=== PATIENT | female | born 1970 | race Two or more races ===

== ENCOUNTER 2019-05-20 15:52 | Emergency (ER) | payer OTHER ==
[~2019-05-20] VITALS: Ht 152.4 cm; Wt 65.9 kg
[2019-05-20] MEDS ORDERED: DIPH-423 PO (16:59)
[2019-05-20] MEDS ORDERED: PRED20TA PO (16:59)
[2019-05-20] MEDS ORDERED: triamcinolone acetonide 40mg/ml inj IM ONE (17:00)
[2019-05-20 17:17] VITALS: BP 150/77
== END 2019-05-20 17:19 | disposition home or self-care (01) ==
LOC: ER 15:52
DX: T78.49XA Other allergy, initial encounter (principal); X58.XXXA Exposure to other specified factors, initial encounter
CPT/HCPCS: 96372; 99283; J3301

== ENCOUNTER 2021-08-15 13:43 | Emergency (ER) | payer OTHER ==
[~2021-08-15] VITALS: Ht 152.4 cm; Wt 65.0 kg
[~2021-08-15 13:43] MED LIST: DIPH-423 PO
[2021-08-15 13:51] VITALS: BP 152/86
[2021-08-15] MEDS ORDERED: CYCL-1 PO (16:42)
== END 2021-08-15 16:56 | disposition home or self-care (01) ==
LOC: ER 13:44
DX: S16.1XXA Strain of muscle, fascia and tendon at neck level, initial encounter (principal); M62.830 Muscle spasm of back; H53.8 Other visual disturbances; M54.2 Cervicalgia; R42 Dizziness and giddiness; R11.0 Nausea; Z87.440 Personal history of urinary (tract) infections; Z79.899 Other long term (current) drug therapy; X58.XXXA Exposure to other specified factors, initial encounter; Y93.89 Activity, other specified; Y92.89 Other specified places as the place of occurrence of the external cause; Y99.8 Other external cause status
CPT/HCPCS: 72040; 82948; 93005; 99283

== ENCOUNTER 2022-10-05 02:03 | Emergency (ER) | payer OTHER ==
[~2022-10-05] VITALS: Ht 152.4 cm; Wt 63.6 kg
[~2022-10-05 02:03] MED LIST changes: +CYCL-1 PO
[2022-10-05 02:15] VITALS: BP 146/77
[2022-10-05 02:39] LABS: URINE HCG NEGATIVE (NEG)
[2022-10-05] MEDS ORDERED: HYDROcodone/acetaminophen 5mg/325mg tablet PO STA (02:39)
[2022-10-05] MEDS ORDERED: phenazopyridine 100mg tablet PO STA (02:39)
[2022-10-05 02:40] LABS: CLARITY,URINE SLIGHTLY CLOUDY (Clear); GLUCOSE, URINE NEGATIVE (Neg); KETONES,URINE NEGATIVE (Neg); LEUKOCYTE ESTERASE ,URINE SMALL (Neg); NITRITES, URINE NEGATIVE (Neg); OCCULT BLOOD,URINE LARGE (Neg); PH,URINE 6.5 (4.8-8.0); PROTEIN,URINE NEGATIVE (Neg); UROBILINOGEN,URINE 0.2 E.U/dL (0.2-1.0)
[2022-10-05 02:41] LABS: UA COLLECTION TYPE CLN CATCH MIDSTREAM
[2022-10-05 02:42] LABS: COLOR,URINE PINK (Yellow)
[2022-10-05] MEDS ORDERED: ondansetron 4mg rapidly disintigrating tab PO ONE (02:45)
[2022-10-05] MEDS ORDERED: ketorolac trometh. 30mg/ml inj. IM ONE (02:45)
[2022-10-05] MEDS ORDERED: normal saline 1000ml 1,000 ML IV ONE (02:55)
[2022-10-05 02:58] LABS: BACTERIA,URINE FEW /HPF (Neg); MUCUS STRANDS FEW /LPF (Neg); RBC,URINE 20-50 /HPF (0-2); SQUAMOUS EPITHELIAL CELL,UR FEW /LPF (FEW); TRANSITIONAL EPI CELLS,URINE FEW /HPF
[2022-10-05 03:40] LABS: BASOPHILS # (AUTO) 0.1 X10'3 (0-0.2); BASOPHILS % (AUTO) 0.9 % (0-1); EOSINOPHILS # (AUTO) 0.1 X10'3 (0-0.9); EOSINOPHILS % (AUTO) 1.3 % (0-6); HEMATOCRIT 38.1 % (35.0-45.0); HEMOGLOBIN 12.7 g/dl (12.0-16.0); LYMPHOCYTES # (AUTO) 2.1 X10'3 (1.1-4.8); LYMPHOCYTES % (AUTO) 22.1 % (21-51); MEAN CORPUSCULAR HEMOGLOBIN 30.6 PG (27.0-31.0); MEAN CORPUSCULAR HGB CONC 33.3 g/dL (33.0-36.5); MEAN CORPUSCULAR VOLUME 91.7 FL (78-98); MEAN PLATELET VOLUME 8.4 FL (7.4-10.4); MONOCYTES # (AUTO) 0.8 X10'3 (0-0.9); MONOCYTES % (AUTO) 8.4 % (2-12); NEUTROPHILS # (AUTO) 6.5 X10'3 (1.8-7.7); NEUTROPHILS % (AUTO) 67.3 % (42-75); PLATELET COUNT 268 X10'3 (140-440); RED BLOOD COUNT 4.15 X10'6 (4.20-5.60); RED CELL DISTRIBUTION WIDTH 13.5 % (11.5-14.5); WHITE BLOOD COUNT 9.6 X10'3 (4.5-11.0)
[2022-10-05 03:45] LABS: ANION GAP 7 (8-16); BLOOD UREA NITROGEN 15 MG/DL (7-18); CALCIUM 8.4 MG/DL (8.5-10.1); CHLORIDE 100 MMOL/L (99-107); GLUCOSE 122 MG/DL (70-104); SODIUM 133 MMOL/L (135-145); TOTAL CARBON DIOXIDE 25.6 MMOL/L (24-32); eGFR > 90 ML/MIN
[2022-10-05 03:46] LABS: ALANINE AMINOTRANSFERASE 19 U/L (12-78); ALBUMIN 3.8 G/DL (3.4-5.0); ALBUMIN/GLOBULIN RATIO 1.1 (1.1-1.5); ALKALINE PHOSPHATASE 73 IU/L (46-116); ASPARTATE AMINO TRANSFERASE 25 U/L (10-37); BILIRUBIN,TOTAL 0.3 MG/DL (0.1-1.0); TOTAL PROTEIN 7.2 G/DL (6.4-8.2)
[2022-10-05] MEDS ORDERED: cephalexin 250mg capsule PO ONE (05:35)
[2022-10-05] MEDS ORDERED: ONDA4TAB12 PO (05:45)
[2022-10-05] MEDS ORDERED: AMOX-580 PO (05:45)
[2022-10-05] MEDS ORDERED: PHEN-786 PO (05:45)
== END 2022-10-05 05:56 | disposition home or self-care (01) ==
LOC: ER 02:04
DX: N39.0 Urinary tract infection, site not specified (principal); Z79.899 Other long term (current) drug therapy; Z79.1 Long term (current) use of non-steroidal anti-inflammatories (NSAID)
CPT/HCPCS: 36415; 74176; 80053; 81001; 81025; 85025; 87077; 87088; 87186; 96360; 96372; 99285; J1885; J7030

== ENCOUNTER → 2024-01-06 | Outpatient (CLI) | payer SELFPAY ==
[~2024-01-06] MED LIST changes: +ONDA4TAB12 PO; +PHEN-786 PO
== END | disposition home or self-care (01) ==
LOC: RAD 11:03
PROVIDERS: ATTEND Family Medicine
DX: S61.203D Unspecified open wound of left middle finger without damage to nail, subsequent encounter (principal); X58.XXXD Exposure to other specified factors, subsequent encounter
CPT/HCPCS: 73140

== ENCOUNTER 2025-04-02 11:11 | Outpatient (CLI) | payer SELFPAY ==
[~2025-04-02 11:11] MED LIST changes: +ONDA-243 PO; -ONDA4TAB12 PO; +iohexol 300mg/ml 100ml inj. ONE
--- NOTE | 2025-04-02 12:15 | RADIOLOGY REPORT ---
CLINICAL HISTORY: NECK MASS TECHNIQUE: CT of the neck was performed before and after administration of 100 ml of omnipaque 300 ad ministered intravenously. This exam was performed according to our departmental dose optimization pro gram. Up-to-date CT equipment and radiation dose reduction techniques are utilized as appropriate. CTDI 14.5 DLP 413.1 COMPARISON: None FINDINGS: The thyroid, submandibular, aparotid glands are unremarkable. No mass lesion or fluid collection is seen. The airway is patent. The epiglottis and palatine/lingual tonsils are unremarkable. There is no enlarged lymph node seen. No acute osseus abnormality is present. The image upper lungs are clear. The image intracranial structures, paranasal sinuses, and mastoid ai r cells are unremarkable. IMPRESSION: No significant CT abnormality of the neck.
== END 2025-04-02 23:59 | disposition home or self-care (01) ==
LOC: RAD 11:11
PROVIDERS: ATTEND Family Medicine
DX: R22.1 Localized swelling, mass and lump, neck (principal)
CPT/HCPCS: 70492; Q9967